=== PATIENT | female | born 1990 | race Caucasian/White ===

== ENCOUNTER 2019-02-09 18:57 | Emergency (ER) | payer MEDICAID ==
--- NOTE | 2019-02-09 20:29 | OBHP ---
Datetime: 02/09/2019 19:58 IP Adm Impression: Term, intrauterine IP Admit Plan: Discharge home Admit Comment, IP Provider: 28 yo f 39.2 wk with PMH of hsv present to JACKELIN due to contraction. Pt report conctraction started on 02/08/19 at 9:30 and have not change in freq. Pt also state noting mucus plug but no water leakage or vag bleed. good movement reported Allergy non PCP: clinic in [facility] Meds: acyclovir, PNV PMH HSV PSH none PFH none OBGYN: none Social denies smoke drink or drug use 20:02 Assessment and plan 28 yo f 39.2 wk with PMH of hsv present to JACKELIN due to contraction. not in active labor, memb pino intact, will discharge home. Vitals WNL strip reactive Mild contraction noted on tocometer Cervix 2,50,-3 Memberane intact WIll discharge home follow up with PCP Lencho PGy1 Case discussed with Dr Josue Addendum by Dr. Josue: I have evaluated the patient independently and I agree with the above Pelvic Type - PN: Adequate Extremities - PN: Normal Abdomen - PN: Normal Back - PN: Normal Breast - PN: Not Done Lungs - PN: Normal Heart - PN: Normal Thyroid - PN: Normal Neurologic - PN: Normal HEENT - PN: Normal General - PN: Normal FHR - Baseline A Provider: 150 Comments, ACOG Physical Exam: heart heard lung clear abd non-tender BS+ Cervix 2,50,-3 Gestation - Est Wks by US: 39.3 IP Chief Complaint: Uterine contractions NICHD Variability Prov Fetus A: Moderate 6-25bpm Dilatation, Provider: 2 Effacement, Provider: 50 Station, Provider: -3 Genitourinary Exam: Normal DTRs - PN: Not Done
--- NOTE | 2019-02-09 20:31 | OBDCSUM ---
Datetime: 02/09/2019 19:50 Discharged to, Provider: Home Follow up at, Provider: [facility] Disch Instr Activity: Normal activity Disch Instr Diet: Regular Discharge Time: 02/09/2019 19:51 Follow up in weeks, Provider: Saturday Disch Referrals: None Discharge Diagnosis Prov Other: false labor
[2019-02-10 02:24] VITALS: BP 113/77; PULSE 107; TEMP 98.5
== END 2019-02-09 19:55 | disposition home or self-care (01) ==
LOC: H.EROB2 18:57
DX: O26.93 Pregnancy related conditions, unspecified, third trimester (principal); R10.2 Pelvic and perineal pain; Z3A.39 39 weeks gestation of pregnancy